=== PATIENT | female | born 1995 | race Asian ===

== ENCOUNTER 2021-02-07 16:41 | Emergency (ER) | payer OTHER ==
[~2021-02-07] VITALS: Ht 152.4 cm; Wt 63.6 kg
[2021-02-07] MEDS ORDERED: bacitracin 15gm ointment TP ONE (17:40)
[2021-02-07] MEDS ORDERED: ketorolac trometh. 30mg/ml inj. IM ONE (18:50)
[2021-02-07 19:41] VITALS: BP 121/81
== END 2021-02-07 20:05 | disposition home or self-care (01) ==
LOC: ER 16:42
DX: S80.211A Abrasion, right knee, initial encounter (principal); S80.212A Abrasion, left knee, initial encounter; M25.561 Pain in right knee; M79.604 Pain in right leg; W19.XXXA Unspecified fall, initial encounter; Y93.89 Activity, other specified; Y92.89 Other specified places as the place of occurrence of the external cause; Y99.8 Other external cause status
CPT/HCPCS: 73564; 96372; 99284; J1885